=== PATIENT | female | born 2000 | race Hispanic/Latino ===

== ENCOUNTER 2021-06-30 00:45 | Emergency (ER) | payer OTHER ==
[~2021-06-30] VITALS: Ht 162.6 cm; Wt 63.5 kg
[2021-06-30] MEDS ORDERED: CLINDAMYCIN PHOS 900MG/ 50ML 50 ML IV STA (01:20)
[2021-06-30] MEDS ORDERED: KETOROLAC TROMETHAMINE 30 MG/ML VIAL IV STA (01:20)
[2021-06-30] MEDS ORDERED: DEXAMETHASONE SOD PHOS 10 MG/1 ML VIAL IV ONE (01:30)
[2021-06-30 01:33] LABS: BASOPHILS % 0.4 % (0.0-1.0); EOSINOPHILS # (AUTO) 0.1 (0.0-0.4); EOSINOPHILS % 0.7 % (0.0-6.0); HEMATOCRIT 43.1 % (34.2-44.1); HEMOGLOBIN 13.4 g/dL (12.0-16.0); LYMPHOCYTES # (AUTO) 2.3 (1.0-3.2); LYMPHOCYTES % 19.9 % (18.0-39.1); MEAN CORPUSCULAR HEMOGLOBIN 27.9 pg (28-32); MEAN CORPUSCULAR HGB CONC 31.1 g/dL (31-35); MEAN CORPUSCULAR VOLUME 89.8 fL (81-99); MONOCYTES # (AUTO) 1.2 (0.2-0.8); MONOCYTES % 10.3 % (4.4-11.3); NEUTROPHILS # (AUTO) 7.7 (2.1-6.9); NEUTROPHILS % 68.3 % (38.7-80.0); PLATELET COUNT 273 x10e3/uL (140-360); RED CELL DISTRIBUTION WIDTH 15.2 % (11.7-14.4)
[2021-06-30 01:55] LABS: ALBUMIN 4.4 g/dL (3.5-5.0); ALBUMIN/GLOBULIN RATIO 1.4 (0.8-2.0); ANION GAP 14.7 mmol/L (8-16); CALCIUM 9.5 mg/dL (8.4-10.2); CREATININE, SERUM 0.89 mg/dL (0.57-1.11); POTASSIUM 3.7 mmol/L (3.5-5.1)
[2021-06-30] MEDS ORDERED: PERIDEX473 M1 PO (02:13)
[2021-06-30] MEDS ORDERED: CLINDAMYCIN HC150 MG PO (02:13)
== END 2021-06-30 03:30 | disposition home or self-care (01) ==
LOC: ER 01:20
DX: K02.9 Dental caries, unspecified (principal)
CPT/HCPCS: 36415; 80053; 84702; 85025; 99283; J1100; J1885

== ENCOUNTER 2022-05-14 01:00 | Emergency (ER) | payer BC, OTHER ==
[~2022-05-14] VITALS: Ht 162.6 cm; Wt 63.5 kg
[~2022-05-14 01:00] MED LIST: CLINDAMYCIN HC150 MG PO; PERIDEX473 M1 PO
[2022-05-14] MEDS ORDERED: IBUPROFEN 600 MG TAB PO STA (01:36)
[2022-05-15] MEDS ORDERED: ACETAMINOPHEN-1 EAC4 PO (02:05)
== END 2022-05-14 01:25 | disposition home or self-care (01) ==
LOC: ER 01:03
DX: H60.91 Unspecified otitis externa, right ear (principal); R50.9 Fever, unspecified
CPT/HCPCS: 99282

== ENCOUNTER 2022-05-15 01:41 | Emergency (ER) | payer BC ==
[~2022-05-15] VITALS: Ht 162.6 cm; Wt 63.5 kg
[2022-05-15] MEDS ORDERED: ACETAMINOPHEN/CODEINE 300MG - 30MG TAB PO ONE (02:00)
[2022-05-15] MEDS ORDERED: ACETAMINOPHEN-1 EAC4 PO (02:05)
== END 2022-05-15 02:14 | disposition home or self-care (01) ==
LOC: ER 01:43
DX: H60.91 Unspecified otitis externa, right ear (principal); R50.9 Fever, unspecified
CPT/HCPCS: 99283